=== PATIENT | male | born 1945 | race Caucasian/White ===

== ENCOUNTER → 2020-03-28 | Outpatient (CLI) | payer MEDICARE | END | disposition home or self-care (01) | LOC: CFH 07:27 | PROVIDERS: ATTEND Internal Medicine Cardiovascular Disease | DX: I08.1 Rheumatic disorders of both mitral and tricuspid valves (principal); I42.0 Dilated cardiomyopathy | CPT/HCPCS: 93306 ==

== ENCOUNTER 2020-10-25 06:21 | Day surgery (SDC) | payer MEDICARE ==
[~2020-10-25] VITALS: Ht 172.7 cm; Wt 99.1 kg
[2020-10-25] MEDS ORDERED: SODIUM CHLORIDE 0.9% 1,000 ML IV ONE (06:30)
[2020-10-25 06:41] VITALS: BP 121/78
[2020-10-25] MEDS ORDERED: ACYC-40 PO (06:51)
[2020-10-25] MEDS ORDERED: ASPI81TA45 PO (06:51)
[2020-10-25] MEDS ORDERED: ALLO300T PO (06:51)
[2020-10-25] MEDS ORDERED: CARV3.1212 PO (06:52)
[2020-10-25] MEDS ORDERED: LATA7.5D EACHEYE (06:52)
[2020-10-25] MEDS ORDERED: AZEL137S4 NAS (06:52)
[2020-10-25] MEDS ORDERED: MAGN400T36 PO (06:52)
[2020-10-25] MEDS ORDERED: OMEP-110 PO (06:52)
[2020-10-25] MEDS ORDERED: DIGO125T85 PO (06:52)
[2020-10-25] MEDS ORDERED: CETI-158 PO (06:52)
[2020-10-25] MEDS ORDERED: WARF-36 PO (06:52)
[2020-10-25] MEDS ORDERED: ACET650S21 PO (06:52)
[2020-10-25] MEDS ORDERED: SPIR1TAB PO (06:52)
[2020-10-25] MEDS ORDERED: PROPOFOL 10 MG/ML, 20ML ONE ×2 (07:08)
== END 2020-10-25 09:03 | disposition home or self-care (01) ==
LOC: CACL 06:21
PROVIDERS: ATTEND Internal Medicine Cardiovascular Disease
DX: I48.21 Permanent atrial fibrillation (principal); I08.1 Rheumatic disorders of both mitral and tricuspid valves; I11.0 Hypertensive heart disease with heart failure; I50.9 Heart failure, unspecified; I42.0 Dilated cardiomyopathy; Z20.822 Contact with and (suspected) exposure to COVID-19; Z79.82 Long term (current) use of aspirin; Z79.899 Other long term (current) drug therapy; Z88.2 Allergy status to sulfonamides; Z88.8 Allergy status to other drugs, medicaments and biological substances
CPT/HCPCS: 87635; 93312; 93325; J2704